=== PATIENT | female | born 1935 | race African-American/Black ===

== ENCOUNTER 2017-04-15 18:27 | Inpatient (IN) | payer OTHER ==
[~2017-04-15] VITALS: Ht 152.4 cm; Wt 56.2 kg
[2017-04-15 18:30] VITALS: BP 111/67
[2017-04-15] MEDS ORDERED: ARICEPT10 M1 PO (19:37)
[2017-04-15] MEDS ORDERED: DICLOFENAC SODI75 MG PO (19:37)
[2017-04-15] MEDS ORDERED: ONDANSETRON HCL4 M2 PO (19:38)
[2017-04-15] MEDS ORDERED: IRON325 M1 PO (19:38)
[2017-04-15 20:18] LABS: HEMATOCRIT 33.4 % (37.0-47.0); HEMOGLOBIN 10.7 gm/dL (12.0-15.0); MCH 20.6 pg (26.0-34.0); MCV 64.2 fL (80.0-100.0); PLATELET COUNT 376 thou/uL (150-400); RDW 19.3 % (10.5-14.5); WBC 8.1 thou/uL (4.0-11.0)
[2017-04-15 20:22] LABS: CALCIUM 9.7 mg/dL (8.5-10.1); CREATININE 4.9 mg/dL (0.6-1.0); POTASSIUM 3.4 mmol/L (3.5-5.1)
[2017-04-15 20:35] LABS: ABSOLUTE NEUTROPHILS 5.6 thou/uL (1.4-8.2)
[2017-04-15 20:36] LABS: HYPOCHROMASIA 2+; MICROCYTES 2+
[2017-04-15 20:37] LABS: OVALOCYTES FEW; POIKILOCYTOSIS 1+; POLYCHROMASIA OCCASIONAL
[2017-04-15 20:38] LABS: ANISOCYTOSIS 2+
[2017-04-15 20:51] VITALS: BP 122/65
[2017-04-15 21:05] VITALS: BP 123/58
[2017-04-15 21:42] VITALS: BP 135/59
[2017-04-16 04:27] VITALS: BP 105/59
[2017-04-16 07:11] LABS: CALCIUM 8.7 mg/dL (8.5-10.1); POTASSIUM 3.2 mmol/L (3.5-5.1)
[2017-04-16 07:14] LABS: CREATININE 3.5 mg/dL (0.6-1.0)
[2017-04-16 07:45] VITALS: BP 132/63
[2017-04-16 17:00] VITALS: BP 141/72
[2017-04-16 22:00] VITALS: BP 145/64
[2017-04-17 04:29] VITALS: BP 147/71
[2017-04-17 06:45] LABS: CALCIUM 8.4 mg/dL (8.5-10.1); POTASSIUM 3.5 mmol/L (3.5-5.1)
[2017-04-17 08:35] VITALS: BP 146/75
[2017-04-17 14:02] VITALS: BP 146/75
== END 2017-04-17 14:19 | disposition home or self-care (01) | DRG 391 ==
LOC: ER 18:27 → 4E 21:01 → EROBS 21:01 → 4E 21:30 → ENTRNSPT 04-17 14:11 → EDTRNSPTSTS 04-17 14:17 → 4E 04-17 14:19
PROVIDERS: Emergency Medicine; Family Medicine
DX: K52.9 Noninfective gastroenteritis and colitis, unspecified (principal); N17.0 Acute kidney failure with tubular necrosis; I10 Essential (primary) hypertension; Z88.0 Allergy status to penicillin; Z91.040 Latex allergy status
CPT/HCPCS: 10084

== ENCOUNTER 2017-07-27 16:18 | Emergency (ER) | payer OTHER ==
[~2017-07-27] VITALS: Ht 152.4 cm; Wt 62.6 kg
--- NOTE | ~2017-07-27 | EKG ---
[place] [address] [facility] [place] [address] ELECTROCARDIOGRAM REPORT Name: MAGALI ROBINS [id number] Admission: 07/27/17 Attend Phys: Discharge: 07/27/17 Date of : 31 Report #: [id number] THIS REPORT FOR: //name// [facility] ED Test Date: 2017-07-27 Test Time: 17:37:44 Pat Name: MAGALI ROBINS Department: Room: Gender: F Duct Layer: BLAS : 1935 Requested By: Blas Buenrostro Order Number: [id number] MD: Bayron Ramirez Measurements Intervals [place] Rate: 49 P: 26 FL: 169 QRS: 6 QRSD: 94 T: 14 QT: 489 QTc: 442 Interpretive Statements Sinus bradycardia Left ventricular hypertrophy Nonspecific T abnrm, anterolateral leads No previous ECG available for comparison Electronically Signed On 07-28-2017 12:06:54 CDT by Bayron Ramirez [email or web address] <ELECTRONICALLY SIGNED> By: Bayron Ramirez MD, [facility] 07/28/17 1206 1737 1737 Bayron Ramirez MD, FACC /EPI
[~2017-07-27 16:18] MED LIST: ARICEPT10 M1 PO; DICLOFENAC SODI75 MG PO; IRON325 M1 PO; ONDANSETRON HCL4 M2 PO
[2017-07-27 17:02] LABS: HEMATOCRIT 29.2 % (37.0-47.0); HEMOGLOBIN 9.4 gm/dL (12.0-15.0); MCH 20.8 pg (26.0-34.0); MCHC 32.1 g/dL (28.0-37.0); MCV 64.8 fL (80.0-100.0); PLATELET COUNT 378 thou/uL (150-400); RDW 17.4 % (10.5-14.5); WBC 5.4 thou/uL (4.0-11.0)
[2017-07-27 17:08] LABS: ANION GAP 0 mmol/L (7-16); BUN 23 mg/dL (7-18); CALCIUM 9.3 mg/dL (8.5-10.1); CHLORIDE 105 mmol/L (98-107); CO2 29 mmol/L (21-32); CREATININE 0.8 mg/dL (0.6-1.0); GLUCOSE 114 mg/dL (74-106); POTASSIUM 3.3 mmol/L (3.5-5.1); SODIUM 134 mmol/L (136-145)
[2017-07-27 17:09] LABS: URINE BILIRUBIN NEGATIVE (Negative); URINE BLOOD NEGATIVE (Negative); URINE CLARITY CLEAR; URINE COLOR YELLOW; URINE GLUCOSE-RANDOM* NEGATIVE (Negative); URINE KETONES NEGATIVE (Negative); URINE LEUKOCYTES-REFLEX NEGATIVE (Negative); URINE NITRITE-REFLEX NEGATIVE (Negative); URINE PROTEIN (DIPSTICK) NEGATIVE (Negative); URINE UROBILINOGEN 0.2 E.U./dl (0.2-1.0)
[2017-07-27 17:15] LABS: LIPASE 241 U/L (73-393); MAGNESIUM 2.1 mg/dL (1.8-2.4); SGOT 23 U/L (15-37); SGPT 22 U/L (30-65); TOTAL BILIRUBIN 0.5 mg/dL (<0.1-1.0); TOTAL PROTEIN 7.3 g/dL (6.4-8.2); TROPONIN-I < 0.04 ng/mL (<0.06)
[2017-07-27 17:30] LABS: ABSOLUTE NEUTROPHILS 2.9 thou/uL (1.4-8.2)
[2017-07-27 17:31] LABS: ANISOCYTOSIS 2+; HYPOCHROMASIA 2+; MICROCYTES 2+
[2017-07-27 17:32] LABS: BURR CELLS 1+; OVALOCYTES 1+; TEARDROPS OCCASIONAL
[2017-07-27] MEDS ORDERED: HYDROCHLOROTHIA25 M2 PO (17:39)
[2017-07-27] MEDS ORDERED: LISINOPRIL40 MG PO (17:40)
[2017-07-27] MEDS ORDERED: ZOFRAN ODT8 MG PO (18:07)
[2017-07-27] MEDS ORDERED: PEPCID20 MG PO (18:07)
== END 2017-07-27 18:33 | disposition home or self-care (01) ==
LOC: ER 16:18
PROVIDERS: Emergency Medicine
DX: R53.1 Weakness (principal); R11.2 Nausea with vomiting, unspecified; E73.9 Lactose intolerance, unspecified; I10 Essential (primary) hypertension; R19.7 Diarrhea, unspecified; Z88.0 Allergy status to penicillin

== ENCOUNTER → 2017-08-26 | Outpatient (CLI) | payer OTHER ==
[~2017-08-26] MED LIST changes: +HYDROCHLOROTHIA25 M2 PO; +LISINOPRIL40 MG PO; +PEPCID20 MG PO; +ZOFRAN ODT8 MG PO
== END ==
LOC: MRI 07:00
DX: M48.07 Spinal stenosis, lumbosacral region (principal); M41.86 Other forms of scoliosis, lumbar region; M46.86 Other specified inflammatory spondylopathies, lumbar region

== ENCOUNTER 2017-11-05 14:24 | Emergency (ER) | payer OTHER ==
[~2017-11-05] VITALS: Ht 152.4 cm; Wt 62.6 kg
== END 2017-11-05 16:58 | disposition home or self-care (01) ==
LOC: ER 14:24
DX: S50.311A Abrasion of right elbow, initial encounter (principal); S80.211A Abrasion, right knee, initial encounter; S09.90XA Unspecified injury of head, initial encounter; M25.511 Pain in right shoulder; I10 Essential (primary) hypertension; M17.11 Unilateral primary osteoarthritis, right knee; Z88.0 Allergy status to penicillin; Z91.040 Latex allergy status; Z90.710 Acquired absence of both cervix and uterus; Z90.722 Acquired absence of ovaries, bilateral; W01.198A Fall on same level from slipping, tripping and stumbling with subsequent striking against other object, initial encounter; Y92.89 Other specified places as the place of occurrence of the external cause; Y93.89 Activity, other specified; Y99.8 Other external cause status

== ENCOUNTER 2018-08-24 13:50 | Emergency (ER) | payer OTHER ==
[~2018-08-24] VITALS: Ht 152.4 cm; Wt 59.0 kg
[2018-08-24 14:19] LABS: URINE BILIRUBIN NEGATIVE (Negative); URINE BLOOD NEGATIVE (Negative); URINE CLARITY CLEAR; URINE COLOR YELLOW; URINE GLUCOSE-RANDOM* NEGATIVE (Negative); URINE KETONES NEGATIVE (Negative); URINE LEUKOCYTES-REFLEX NEGATIVE (Negative); URINE NITRITE-REFLEX NEGATIVE (Negative); URINE PROTEIN (DIPSTICK) 1+ (Negative); URINE UROBILINOGEN 0.2 E.U./dl (0.2-1.0)
[2018-08-24 14:25] LABS: BACTERIA-REFLEX 1-9 Few /HPF (None Seen); CASTS None Seen /LPF (None Seen); CRYSTALS None Seen /LPF (None Seen); SQUAMOUS 0-3 Few /LPF (0-3); URINE RBC None Seen /HPF (0-2); URINE WBC-REFLEX 0-5 Rare /HPF (0-5)
[2018-08-24 14:44] LABS: HEMATOCRIT 30.9 % (37.0-47.0); HEMOGLOBIN 9.7 gm/dL (12.0-15.0); MCH 19.6 pg (26.0-34.0); MCHC 31.3 g/dL (28.0-37.0); MCV 62.4 fL (80.0-100.0); PLATELET COUNT 363 thou/uL (150-400); RBC 4.95 mil/uL (4.20-5.00); RDW 20.2 % (10.5-14.5); WBC 5.6 thou/uL (4.0-11.0)
[2018-08-24 14:52] LABS: ANION GAP 12 mmol/L (7-16); BUN 11 mg/dL (7-18); CALCIUM 9.4 mg/dL (8.5-10.1); CHLORIDE 104 mmol/L (98-107); CO2 25 mmol/L (21-32); CREATININE 0.7 mg/dL (0.6-1.0); GLUCOSE 102 mg/dL (74-106); POTASSIUM 3.4 mmol/L (3.5-5.1); SODIUM 141 mmol/L (136-145)
[2018-08-24 15:02] LABS: ALBUMIN 4.3 g/dL (3.4-5.0); LIPASE 156 U/L (73-393); SGOT 17 U/L (15-37); SGPT 25 U/L (30-65); TOTAL BILIRUBIN 0.5 mg/dL (<0.1-1.0); TOTAL PROTEIN 7.6 g/dL (6.4-8.2); TROPONIN-I <0.06 ng/mL (<0.06)
[2018-08-24 15:15] LABS: ABSOLUTE NEUTROPHILS 4.1 thou/uL (1.4-8.2); ANISOCYTOSIS 1+; HYPOCHROMASIA 1+; MICROCYTES 1+
[2018-08-24] MEDS ORDERED: AMLODIPINE BESY10 MG PO (15:33)
[2018-08-24] MEDS ORDERED: NORVASC2.5 MG PO (15:34)
[2018-08-24] MEDS ORDERED: LISINOPRIL20 MG PO (15:34)
[2018-08-24 17:25] VITALS: BP 170/66
--- NOTE | 2018-08-24 22:43 | EKG ---
[address] [address] ELECTROCARDIOGRAM REPORT Name: MAGALI ROBINS 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 : 1935 Requested By: Xavi Rivera Order Number: [id number] MD: El Rose Measurements Intervals [place] Rate: 46 P: 28 CO: 154 QRS: 0 QRSD: 101 T: -4 QT: 495 QTc: 433 Interpretive Statements Sinus bradycardia Left ventricular hypertrophy Compared to ECG 07/27/2017 17:37:44 No significant changes Electronically Signed On 08-24-2018 22:43:00 CDT by El Rose [email or web address] ��������������������������������������������� <ELECTRONICALLY SIGNED> ���������������������������������������� By: El Rose MD ��������������������������������������������� 08/24/18 2243 1446 144 El Rose MD /GONZALES
== END 2018-08-24 17:26 | disposition home or self-care (01) ==
LOC: ER 13:50
PROVIDERS: Emergency Medicine
DX: R11.2 Nausea with vomiting, unspecified (principal); I10 Essential (primary) hypertension; Z88.0 Allergy status to penicillin; Z91.040 Latex allergy status

== ENCOUNTER → 2019-02-09 | Outpatient (CLI) | payer OTHER ==
[~2019-02-09] MED LIST changes: +AMLODIPINE BESY10 MG PO; +LISINOPRIL20 MG PO; +NORVASC2.5 MG PO
[2019-02-09 13:55] VITALS: BP 177/68
--- NOTE | 2019-02-09 15:47 | NUR ---
IN FOR 1ST OF 2 INJECTAFER INFUSIONS FOR IRON DEFICIENCY ANEMIA. ADMISSION HISTORY AND ASSESSMENT COMPLETED. IV STARTED IN RW, INFUSED INJECTAFER OVER 30 MINUTES. TOLERATED INFUSION WELL. PATIENT'S BP ELEVATED 177/68. PATIENT RECENTLY HAD STOPPED LISINOPRIL DUE TO COUGH. PATIENT'S DTR CALLED DR. LUONG AND RECEIVED NEW PRESCRIPTION FOR HTN, AND WILL MANAGER [employer]AT[employer] SERVICES ON THE WAY HOME. POST VITAL SIGNS STABLE. OBSERVED FOR 30 MINUTES AND THEN DISMISSED IN STABLE CONDITION. TO RETURN NEXT SATURDAY FOR 2ND INFUSION.
== END ==
LOC: RAD 09:21 → OPONC 09:21
DX: D50.9 Iron deficiency anemia, unspecified (principal); K90.9 Intestinal malabsorption, unspecified
CPT/HCPCS: 95000

== ENCOUNTER → 2019-02-16 | Outpatient (CLI) | payer OTHER ==
[2019-02-16 14:05] VITALS: BP 162/64
[2019-02-16 15:45] VITALS: BP 173/72
--- NOTE | 2019-02-16 16:06 | NUR ---
IN FOR 2ND INJECTAFER INFUSION FOR IRON DEFICIENCY ANEMIA. PATIENT STATED SHE IS FEELING BETTER SINCE HER 1ST INFUSION LAST SATURDAY. DTR MACKENZIE WITH PATIENT. TOLERATED INFUSION WITHOUT INCIDENT. POST VITAL SIGNS STABLE. OBSERVED FOR 30 MINUTES AND THEN DISMISSED IN STABLE CONDITION.
== END ==
LOC: OPONC 01:37
DX: D50.9 Iron deficiency anemia, unspecified (principal); K90.9 Intestinal malabsorption, unspecified
CPT/HCPCS: 95000

== ENCOUNTER 2021-04-26 11:53 | Inpatient (IN) | payer OTHER ==
[~2021-04-26] VITALS: Ht 149.9 cm; Wt 49.9 kg
--- NOTE | ~2021-04-26 | EMS ---
[address] [address] EMS Patient Care Report Name: MAGALI ROBINS Room #: REG VU Banks#: [id number] Admission: 04/26/21 Attend Phys: Discharge: Date of : 33 Report #: [id number] THIS REPORT FOR: //name// Report Transmitted: 04/26/2021 13:21 EMS Care Summary [place], [place]/[facility] Incident [phone] @ 04/26/2021 11:20 Incident Location [address] [place] [address] 217 Patient MAGALI ROBINS Female, 85 Years 1935 Patient Address Patient History Hypertension (HTN), Patient Allergies Other drug allergy, Patient Medications Unknown, Chief Complaint "Just not feeling well" Disposition Transported No Lights/[place] Dispatch Reason Sick Person Transported To [facility] Narrative Arrived on scene to find our patient walking around her apartment talking on the phone. EMS had been called by the patient's son when he was unable to reach the patient via phone. Patient stated she was "feeling unwell" but could not describe specifically how she was feeling unwell. Patient reported that she had one short episode of vomiting earlier in the morning but denied any chest pain, soa, nausea, or diarrhea. I spoke with the patient's son via phone and he [address] [address] EMS Patient Care Report Name: MAGALI ROBINS Room #: REG VU Banks#: [id number] Admission: 04/26/21 Attend Phys: Discharge: Date of : 33 Report #: [id number] stated the patient had not been taking her medications for approximately 2 months. Patient stated she "doesn't take my medications like they want me to." The patient stated that she felt mildly confused. Patient was AO3 upon our arrival and did not appear in any obvious distress. Patient assisted to cot. Vital signs obtained and patient transported and transferred to receiving facility without change in patient condition. Initial Vitals @11:31P: 69,R: 16,BP: 205/83,Pain: 0/10,GCS: 14,Glucose: 125,SpO2: 98,Revised Trauma: 12, @11:47P: 55,R: 16,BP: 190/80,Pain: 0/10,GCS: 14,SpO2: 98,Revised Trauma: 12, Assessments @11:25MENTAL:Time Oriented,Person Oriented,Place Oriented,Event Oriented,Confused,SKIN:HEENT:Head/Face: No Abnormalities,Neck/Airway: No Abnormalities,LUNG SOUNDS:General: Vomiting,ABDOMEN:General: Vomiting,PELVIS//GI:No Abnormalities,EXTREMITIES:Left Arm: No Abnormalities,Right Arm: No Abnormalities,Left Leg: No Abnormalities,Right Leg: No Abnormalities,PULSE:NEURO:No Abnormalities, Impression Generalized Weakness Procedures @11:25 ALS Assessment Response: UnchangedSucceeded Timeline 11:15,Call Received 11:15,Dispatch Notified 11:20,Dispatched 11:20,En Route 11:23,On Scene 11:25,At Patient 11:25,ALS Assessment,Response: UnchangedSucceeded, 11:31,BP: 205/83 M,PULSE: 69,RR: 16 R,SPO2: 98 Ox,ETCO2: ,B,PAIN: 0,GCS: 14, 11:40,Depart Scene 11:47,BP: 190/80 M,PULSE: 55,RR: 16 R,SPO2: 98 Ox,ETCO2: ,BG: ,PAIN: 0,GCS: 14, 11:50,At Destination 12:04,Call Closed Disclaimer v1.1 Copyright 2021 [employer] This EMS Care Summary contains data elements from the applicable legal record (which may be displayed differently). It is designed to provide pertinent [address] [address] EMS Patient Care Report Name: MAGALI ROBINS [facility] #: [facility] [id number] Admission: 04/26/21 Attend Phys: Discharge: Date of : 33 Report #: [id number] information for the following purposes: continuity of care, clinical quality, and state data reporting. The complete legal record is available to ED staff and administrators of the receiving hospital in ES's Patient Tracker. All data is provided "as is."
[2021-04-26 11:55] VITALS: BP 211/73
[2021-04-26 12:18] LABS: ABSOLUTE NEUTROPHILS 2.6 thou/uL (1.4-8.2); BASOPHILS 1.3 % (0.0-2.0); EOSINOPHILS 0.7 % (0.0-3.0); HEMATOCRIT 39.2 % (37.0-47.0); HEMOGLOBIN 12.5 gm/dL (12.0-15.0); LYMPHOCYTES 24.9 % (24.0-44.0); MCH 25.4 pg (26.0-34.0); MCHC 31.9 g/dL (28.0-37.0); MCV 79.6 fL (80.0-100.0); MONOCYTES 4.7 % (1.0-8.0); PLATELET COUNT 263 thou/uL (150-400); POLYS 68.4 % (36.0-66.0); RBC 4.93 mil/uL (4.20-5.00); RDW 14.9 % (10.5-14.5); WBC 3.8 thou/uL (4.0-11.0)
[2021-04-26 12:29] LABS: CREATININE 0.6 mg/dL (0.6-1.0)
[2021-04-26 12:30] LABS: URINE BILIRUBIN NEGATIVE (Negative); URINE BLOOD NEGATIVE (Negative); URINE CLARITY CLEAR; URINE COLOR YELLOW; URINE GLUCOSE-RANDOM* NEGATIVE (Negative); URINE KETONES NEGATIVE (Negative); URINE LEUKOCYTES-REFLEX NEGATIVE (Negative); URINE NITRITE-REFLEX NEGATIVE (Negative); URINE PROTEIN (DIPSTICK) NEGATIVE (Negative); URINE SPECIFIC GRAVITY >= 1.030 (1.005-1.035); URINE UROBILINOGEN 0.2 E.U./dl (0.2-1.0)
[2021-04-26 12:31] LABS: POTASSIUM 4.4 mmol/L (3.5-5.1)
[2021-04-26 12:34] LABS: ALBUMIN 3.9 g/dL (3.4-5.0); TOTAL BILIRUBIN 0.7 mg/dL (0.2-1.0); TOTAL PROTEIN 7.5 g/dL (6.4-8.2)
--- NOTE | 2021-04-26 17:59 | NUR ---
POOJA HERNANDEZ-SON [phone]
[2021-04-26] MEDS ORDERED: DITROPAN XL5 M1 PO ×2 (18:43)
[2021-04-26] MEDS ORDERED: LISINOPRIL20 MG PO ×2 (18:43)
[2021-04-26] MEDS ORDERED: VOLTAREN50 MG PO ×2 (18:44)
--- NOTE | 2021-04-27 05:34 | NUR ---
ARIVED VIA EMS TO ER. PT HAS EARLY DEMENTIA, BRADYCARDIA, AND SUNDOWNERS NOTED PT IS AGITATED AND WANTING TO LEAVE. MOVED TO CLOSER TO DESK AREA 217 LUNGS CLEAR . ON ROOM AIR. ABDOMEN IS SOFT AND NONTENDER. BOWEL SOUNDS ACTIVE. SAILINE LOCK IN RIGHT ARM. FALL SOCKS ON FALL BRACELET ON. DNR PLACED ON PT DOESNT WANT ANYTHING DONE TO HER SHE REPORTS AND CHART PREVIOUS STATES NO CODE. CALL LIGHT WITHIN REACH PLAN OF CARE DISCUSSED WITH PT FOR ADMISSION AT THIS TIME NOT READY TO LEARN.
--- NOTE | 2021-04-27 08:38 | EKG ---
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 04/27/21 0837 1205 1205 Abdon Matthews MD, FACC /EPI
--- NOTE | 2021-04-27 08:39 | EKG ---
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 garcia : 1935 Requested By: Jennifer Espinoza Order Number: [id number] MD: Abdon Matthews Measurements Intervals [place] Rate: 40 P: 50 GA: 150 QRS: 19 QRSD: 97 T: 51 QT: 509 QTc: 416 Interpretive Statements Sinus bradycardia Compared to ECG 04/26/2021 12:05:10 T-wave abnormality no longer present Electronically Signed On 04-27-2021 8:39:14 [employer]CHETTE SEWER by Abdon Matthews [email or web address] <ELECTRONICALLY SIGNED> By: Abdon Matthews MD, [facility] 04/27/21 0839 1536 1536 Abdon Matthews MD, FACC /EPI
[2021-04-27 08:44] VITALS: BP 155/87
[2021-04-27 13:47] VITALS: BP 163/88
--- NOTE | 2021-04-27 16:38 | NUR ---
PATIENT TRANSFERED TO [facility] ROOM 520. REPORT GIVEN TO RIC JACOBS. NO QUESTIONS OR CONCERNS AT TIME OF REPORT. SON POOJA CALLED AND MADE AWARE. IV AND TELE REMOVED.
== END 2021-04-27 16:42 | DRG 308 ==
LOC: ER 11:53 → EROBS 17:19 → 2N 17:19
PROVIDERS: Nurse Practitioner Family; ADMIT Hospitalist; ATTEND Hospitalist
DX: R00.1 Bradycardia, unspecified (principal); G93.41 Metabolic encephalopathy; F03.91 Unspecified dementia, unspecified severity, with behavioral disturbance; R11.2 Nausea with vomiting, unspecified; R41.0 Disorientation, unspecified; N32.81 Overactive bladder; K59.00 Constipation, unspecified; D50.9 Iron deficiency anemia, unspecified; R53.81 Other malaise; I10 Essential (primary) hypertension; Z20.822 Contact with and (suspected) exposure to COVID-19; Z90.710 Acquired absence of both cervix and uterus; Z90.722 Acquired absence of ovaries, bilateral; Z79.899 Other long term (current) drug therapy; Z88.0 Allergy status to penicillin; Z91.040 Latex allergy status

== ENCOUNTER 2021-04-27 12:01 | Inpatient (IN) | payer OTHER ==
[~2021-04-27] VITALS: Ht 144.8 cm; Wt 51.5 kg
--- NOTE | ~2021-04-27 | D ---
[facility] [place] [address] DISCHARGE SUMMARY Name: MAGALI ROBINS Room #: 519A-A DIS IN M.R.#: [id number] Admission: 04/27/21 Attend Phys: Ortiz Garcia DO Discharge: 05/09/21 Date of : 33 Report #: [id number] THIS REPORT FOR: cc: Jd Claire MD, Neal A. MD Kerstein,Ortiz Mcqueen DO ~ DATE OF SERVICE: 05/09/2021 INPATIENT PSYCHIATRIC DISCHARGE SUMMARY ATTENDING PSYCHIATRIST: Ortiz Garcia DO POULTRY BONER: Mariano Clark MD DISCHARGE DIAGNOSES: Major neurocognitive disorder with behavioral disturbance, much improved. MEDICAL COMORBIDITIES: Include hypertension, GI prophylaxis, sinus bradycardia. The patient is discharging to [facility] for long-term care, psychiatric and medical care per receiving facility. DISCHARGE DIET: Regular Ensure Enlive with breakfast. The patient utilizes a walker. DISCHARGE MEDICATIONS: As follows: Amlodipine 10 mg oral daily for hypertension, lisinopril 20 mg oral for hypertension, hold if BP is under 100 systolic mmHg for both, olanzapine 2.5 mg oral twice daily for impulse control, docusate 100 mg oral daily for bowel motility. LABORATORY DATA: This admission, hematology: White count 3.9, H and H 12.5 and 39.2, platelet count 263. On 04/26, CMP was grossly normal except A1c 5.7. ALT slightly low at 18. Lipids were within normal limits. TSH 0.586. Folate normal at 20.1. B12, somewhat low at 295. Lipase was normal. Urinalysis, normal serology, not detected by PCR on 04/27, 04/30, 05/02, 05/05, and 05/07. REASON FOR ADMISSION: Back on 04/27, an 85-year old black female admitted via ED, brought in by EMS for nausea and vomiting. The patient was more confused than usual. The patient was found to be demented and family was unable to take care of her. Therefore, they switched gears to psychiatric admission. HOSPITAL COURSE: The patient was admitted to Geriatric Psychiatry Unit. She had a pretty quiescent course, was well behaved, participated in groups. Her initial weekend here, she has some impulsiveness. Olanzapine 2.5 mg daily was started. She tolerated it well. On the day of discharge, no SI, no HI. PHYSICAL EXAMINATION: VITAL SIGNS: Temperature 36.4, pulse 64, respirations 16, BP 184/65, O2 sat [facility] [address] [place] [address] DISCHARGE SUMMARY Name: MAGALI ROBINS Room #: 519A-A [facility] IN .R.#: [id number] Admission: 04/27/21 Attend Phys: Ortiz Garcia, Discharge: 05/09/21 Date of : 31 Report #: [id number] 99%. She did roa around 180 systolic for her blood pressure and given her advanced age, this was not significantly managed. MENTAL STATUS EXAMINATION: This is a well-developed, age-appearing black female. Attention fair. Concentration limited. Speech normal in rate. Thought process: Linear and goal directed. Thought content: Focused on current events. Denied SI, HI. No auditory or visual type hallucinations. No hopelessness or helplessness. Memory known to be impaired, not formally tested. Insight and judgment fair to limited. Fund of knowledge, below average. Prognosis for this patient is guarded given her age of 85, having a neurodegenerative disorder. Also, she did have an EKG done on this admission, which I will review briefly. Actually, showed QTc 421, QT 471, ND interval 147 milliseconds. She actually was admitted medically very briefly and there should be a discharge summary from Ortiz Garces, her hospitalist. . By: 1244 1355 Ortiz Garcia, DO /nt
[~2021-04-27 12:01] MED LIST changes: +DITROPAN XL5 M1 PO; +VOLTAREN50 MG PO
--- NOTE | 2021-04-27 17:48 | NUR ---
Jade arrived to [facility] from CCU room 217 at 1627. She was brought to her room and oriented to her surroundings. Skin check was completed and no skin issues noted besides some dry skin to bilateral feet. Pt was compliant with the skin assessment but when asked orientation questions pt appeared confused and responded by stating "I already answered that earlier, I'm not going to do that again". Pt is currently sitting up eating dinner in a gilson-chair in the hallway due to covid protocols on the unit and pt being restless in bed. She appears to have a good appetite at this time. Pt's son/DPDIDI Jefferson was called and consent for tx received as well as this RN provided him with information regarding the unit. Ronny and his were driving from [place] to [place] and he stated he would have more questions tomorrow and would come grain picker pt's belongings tomorrow around 2pm; he is aware that we currently do not have visiting hours. Medications were reordered per orders received from Dr. Garcia; medication orders are the same as medications pt was D/C'd with from CCU. Dr. Garces was paged at [phone] to notify of pt's arrival to the unit as Dr. Garcia stated to keep Dr. Garces as the hospitalist as he was attending to pt on CCU. Have not received a call back at this time. CCU nurse was called regarding pt's code status as it was not clear. Per Rere RN she stated that over night last night pt had made comments of wanting to and per over night hospitalist she was made a no code. This morning Dr. Garces spoke to Ronny pt's DPOA/son and stated she is a full code. Orders placed for pt to be a full code upon admission. Will continue to monitor. CCU nurse was called to receive information regarding pt's code status.
[2021-04-27 18:30] VITALS: BP 174/85
[2021-04-27 19:38] VITALS: BP 161/78
--- NOTE | 2021-04-27 23:39 | NUR ---
04-27-21 CARE TRANSFERRED 1899 OBSERVED PT SITTING IN HALLWAY WITH TABLE. LATER PT AAOX2, VSS, RR EVEN AND NONLABORED ON RA, PT DENIES PAIN AND SI/HI. PT REPORTS SHE NEEDS TO GO HOME. PT APPEARS TO UNDERSTANDING THAT SHE WILL BE STAYING IN THE HOSPITAL. LATER PT BECAME AGITATED AND WANTING TO GET UP, PT BROUGHT TO DAY ROOM. HCP Kyra CEBALLOS, DO CONTACED AND ORDERS RECEIVED AND ADMIN. PT WILL CONTINUE TO BE MONITOR PER [facility] PROTOCOL.
[2021-04-28 06:57] LABS: CHOLESTEROL 180 mg/dL (<200); HDL CHOLESTEROL 96 mg/dL (>40); LDL CHOLESTEROL 73 mg/dL (<100); TC:HDL 1.9 Ratio (Not establshd); TRIGLYCERIDE 58 mg/dL (<150); VLDL 12 mg/dL (<40)
--- NOTE | 2021-04-28 09:21 | NUR ---
PATIENT D/C PRIOR TO OT EVAL BEING INITIATED
[2021-04-28 10:03] VITALS: BP 155/84
--- NOTE | 2021-04-28 10:54 | NUR ---
Alert and orientated to person and place. Denies SI/HI. Breath sounds clear. Reg HR auscultated. Color pink with brisk capillary refill and palpable peripheral pulses. Incontinent of large amt yellow urine and then continent of yellow urine in toilet. Brief placed on pt. Active bowel sounds over soft, rounded abdomen. Unsteady gait with walker.
--- NOTE | 2021-04-28 11:50 | 2DMMODE ---
[facility] [place] [address] 2 D/M-MODE ECHOCARDIOGRAM Name: MAGALI ROBINS Room #: 520A-A ADM IN M.R.#: [id number] Admission: 04/27/21 Attend Phys: Ortiz Garcia DO Discharge: Date of : 33 Report #: [id number] THIS REPORT FOR: cc: Jd Claire MD, Neal A. MD Lundgren, Craig H. MD [facility] ~ APPROVED REPORT Study performed: 04/28/2021 11:12:38 EXAM: Comprehensive 2D, Doppler, and color-flow Echocardiogram Patient Location: Out-Patient Status: routine BSA: 1.39 HR: 62 bpm BP: 155/84 mmHg Rhythm: NSR Other Information Study Quality: Good Indications Bradycardia. 2D Dimensions RVDd: 30.00 mm IVSd: 12.00 (7-11mm) LVOT Diam: 20.00 (18-24mm) LVDd: 40.00 mm PWd: 12.00 (7-11mm) LVDs: 27.00 (25-40mm) Left Atrium: 32.00 (27-40mm) Aortic Root: 29.00 mm Volumes Left Atrial Volume (Systole) Single Plane 4CH: 30.59 mL Single Plane 2CH: 32.64 mL LA ESV Index: 27.00 mL/m2 Aortic Valve AoV Peak Nikolai.: 1.50 m/s AO Peak Gr.: 8.95 mmHg LVOT Max P.00 mmHg LVOT Max V: 1.12 m/s ELLE Vmax: 2.32 cm2 [facility] [address] [address] 2 D/M-MODE ECHOCARDIOGRAM Name: MAGALI ROBINS Room #: 520A-A [facility] IN [facility].#: [id number] Admission: 04/27/21 Attend Phys: Ortiz Garcia Discharge: Date of : 33 Report #: [id number] Mitral Valve E/A Ratio: 0.7 MV Decel. Time: 367.51 ms MV E Max Nikolai.: 0.70 m/s MV A Nikolai.: 1.07 m/s MV PHT: 106.58 ms IVRT: 65.74 ms Pulmonary Valve PV Peak Nikolai.: 0.97 m/s PV Peak Gr.: 3.78 mmHg Pulmonary Vein P Vein S: 0.40 m/s Tricuspid Valve TR Peak Nikolai.: 2.25 m/s RAP Estimate: 5.00 mmHg TR Peak Gr.: 20.16 mmHg PA Pressure: 25.00 mmHg Left Ventricle The left ventricle is normal size. There is normal LV segmental wall motion. Mild concentric left ventricular hypertrophy. Left ventricular systolic function is hyperdynamic. LVEF is 65-70%. Mild diastolic dysfunction Right Ventricle The right ventricle is normal size. The right ventricular systolic function is normal. Atria The left atrium size is normal. The right atrium size is normal. Aortic Valve Aortic valve is calcified. Trace aortic regurgitation. No aortic valvular stenosis. Mitral Valve Mild mitral annular calcification. No mitral valve regurgitation noted. No evidence of mitral valve stenosis. Tricuspid Valve The tricuspid valve is normal in structure. Mild tricuspid regurgitation. Estimated pulmonary artery pressure of 25mmHg. [facility] [address] [place] [address] 2 D/M-MODE ECHOCARDIOGRAM Name: MAGALI ROBINS Room #: 520A-A [facility] IN ..#: [id number] Admission: 04/27/21 Attend Phys: Ortiz Garcia Discharge: Date of : 31 Report #: [id number] Pulmonic Valve Pulmonic valve is not well visualized. Trace pulmonic regurgitation. Great Vessels The aortic root is normal in size. Ascending aorta is not well visualized. IVC is normal in size and collapses >50% with inspiration. Pericardium There is no pericardial effusion. <Conclusion> Left ventricular systolic function is hyperdynamic. There is normal LV segmental wall motion. Mild concentric left ventricular hypertrophy. LVEF is 65-70%. Mild diastolic dysfunction Aortic valve is calcified. Trace aortic regurgitation, no stenosis. Mild mitral annular calcification. No mitral valve regurgitation Mild tricuspid regurgitation. Estimated pulmonary artery pressure of 25mmHg. There is no pericardial effusion. <ELECTRONICALLY SIGNED> By: Bayron Ramirez MD, FACC 04/28/21 1150 1150 1150 Bayron Ramirez MD, [facility] /INF
[2021-04-28 14:42] LABS: FOLIC ACID 20.1 ng/mL (8.6-58.9)
[2021-04-28 19:02] VITALS: BP 145/79
--- NOTE | 2021-04-29 05:18 | NUR ---
Assumed care of pt at 1900. Pt calm et cooperative this shift. Took medications whole without difficulty. Ambulates with assistance of gilson-chair this shift. VSWNL. Health assessment with no abnormalities noted this shift. Spent the early part of shift watching TV with peers in dayroom. Pt denies SI/HI at present time. Currently resting in bed with eyes closed. Will continue to monitor per unit protocol.
[2021-04-29 06:06] LABS: GLYCOHEMOGLOBIN (HGB A1C) 5.7 % (4.8-5.6)
--- NOTE | 2021-04-29 10:00 | NUR ---
Alert and orientated to name and time. Denies SI/HI. Calm, cooperative and compliant. Took meds whole with liquid. Breath sounds clear. Reg HR auscultated. Color pink with brisk capillary refill and palpable peripheral pulses. Brief dry this AM. Active bowel sounds over soft, rounded abdomen. Able to bear wt but needs assistance ambulating, gait very unsteady. Currently sitting in chair without s/o distress. In day room.
[2021-04-29 10:58] VITALS: BP 123/53
[2021-04-29 19:01] VITALS: BP 119/50
--- NOTE | 2021-04-29 21:56 | H ---
[facility] [place] [place] [address] HISTORY AND PHYSICAL Name: MAGALI ROBINS Room #: 520A-A ADM IN M.R.#: [id number] Admission: 04/27/21 Attend Phys: Ortiz Garcia DO Discharge: Date of : 31 Report #: [id number] THIS REPORT FOR: cc: dJ Claire MD, Neal A. MD Kerstein, Andrew H. DO ~ DATE OF SERVICE: 04/27/2021 INPATIENT PSYCHIATRIC EVALUATION ATTENDING PSYCHIATRIST: Ortiz Garcia DO MEDICAL CONSULTANTS: Shani Chen APRN and consulting hospitalist, Guanakito Taveras MD. REASON FOR ADMISSION: Paranoia, agitation, probable dementia, on medical floor. SOURCES OF INFORMATION: Interview with the patient, chart review including records from very her recent medical hospitalization. She had had her medical hospitalizations supposedly for bradycardia and weakness. CHIEF COMPLAINT: Unspecified. HISTORY OF PRESENT ILLNESS: An 85-year-old black female brought to the ED by EMS, complaint was nausea and vomiting. The patient was brought in from independent living. The patient reports she had one episode of nausea and vomiting. The patient was more confused than usual, the patient agrees. Denies urinary complaints, but states it was of "different color." She is alert and oriented x 4. PAST MEDICAL HISTORY: Includes hypertension, ectopic , knee surgery, right side; arthritis, total abdominal hysterectomy with bilateral salpingo-oophorectomy. She has anemia, she has injection after infusion, 02/09/2019, 02/16/2019. HOME MEDICATIONS: Donepezil 10 mg oral daily, olanzapine 2.5 mg daily, ferrous sulfate 325 mg p.o. daily. ALLERGIES: LATEX AND PENICILLINS. SOCIAL HISTORY: Denying history of tobacco, alcohol or recreational drug use. Weight 54.43 kilos. She did have a heart rate of 40-48 in the ER, no STEMI was observed. She actually was seen by Cardiology on the medical floor, no psychiatric [address] [address] HISTORY AND PHYSICAL Name: MAGALI ROBINS Room #: 520A-A ADM IN ..#: [id number] Admission: 04/27/21 Attend Phys: Ortiz Garcia DO Discharge: Date of : 33 Report #: [id number] consultation was completed; however, she was very agitated the night before psychiatric admission and we decided given the circumstances to bring her up to the [facility]. LABORATORY DATA: Hematology: White count 3.8, H and H 12.5 and 39.3, platelet count 263. She has occasional teardrop cells, polychromasia. Segmented neutrophil percentage was high. Chemistries: Sodium 137, potassium 4.4, chloride 103, bicarbonate 23, anion gap 11, BUN 8, creatinine 0.6, estimated GFR 115, glucose 137, calcium 9.0. Total bilirubin 0.7, AST 26, ALT 18. Troponin high sensitivity at 38. Total protein 7.5, albumin 3.9. Triglycerides 58, cholesterol 180, LDL 73, HDL 96. B12 level low at 295. Folate 20.1. TSH 0.586. Urinalysis was clean except for a few bacteria, no culture triggered. SARS-CoV-2 PCR was negative. IMAGING DONE: None this admission. The patient's son, Ronny, is driving from [place] in [place] and should arrive some time today, 04/28/2021. Also, it was noted by the patient's nurse in the CCU, she made comments of wanting to . Per overnight hospitalist, she was made a no code, but looks like the DPOA wanted her to be a full code. In any event, today, the patient was pleasant. Denied suicidal or homicidal ideation, auditory or visual type hallucinations. She was oriented to person, place, situation, appeared frail and weak. Regarding her medications today, I reviewed them with pharmacist. She is on docusate 100 mg oral daily, 20 mg oral daily, olanzapine as ordered at 2.5 mg oral twice a day with starter dose at 11:30, I will change it to 9 to 9 as per normal with other patients. She is on lisinopril 20 mg daily with parameters, donepezil, which she is at home at 10 mg oral daily. I should note since she was admitted with bradycardia, this medication would be cautioned. I think since it is on board at this time, we will leave it, but I will discuss risks versus benefits. Voltaren 50 mg p.o. daily, amlodipine 2.5 mg oral daily. Otherwise, house PRNs. PHYSICAL EXAMINATION: VITAL SIGNS: Temperature 35.9, pulse 71, respirations 17, BP 135/84, O2 sat 94%. GENERAL: Frail, thin appearing, seen in Leia chair. MENTAL STATUS EXAMINATION: Well-developed, ill-appearing black female, apparently stated age. Attention limited. Concentration limited. Speech soft, normal rate. Thought process, linear, limited. Thought content, focused on present. Denied SI, HI, auditory or visual type hallucinations. mood affect- calm congruent, euthymic, memory- not formally tested insight/judgement fair to [facility] [address] [place] [address] HISTORY AND PHYSICAL Name: MAGALI ROBINS Room #: 520A-A ADM IN .R.#: [id number] Admission: 04/27/21 Attend Phys: Ortiz Garcia, Discharge: Date of : 31 Report #: [id number] limited fund of knowledge- no greater than average Do not have a good handle on family psychiatric history or if there has been abuse, physical, sexual, emotional nature. 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 Chest x-ray was negative. sinus bradycardia, heart rate in the 60s, occasional episodes dropping to as low as 35 consistent with sinus bradycardia, that may be related to nausea and vomiting, vasovagal reaction. I think we will go ahead and stop the Aricept on this patient, as she has made it to 85 years and I think the risks outweigh the benefits at this point. FORMULATION: An 85-year-old female, brought in from independent living facility for weakness, bradycardia, initial complaints of nausea, vomiting. DIAGNOSES: At this time, major neurocognitive disorder, working diagnosis. Additional comorbidities include hypertension, osteoarthritis, generalized weakness, deconditioning. PLAN: Admitted voluntarily to [facility] to evaluate, stabilize, obtain collateral. I will go ahead and stop the donepezil today as other causes of bradycardia were excluded downstairs. We will continue the other hospitalized medications. The olanzapine will have some anti-delirium effect, we can only stop that too at a later date. Time spent on this case about 45 minutes, greater than 50% of the time was in review of records and coordination of care. I will look to talk with her son early next week if I do not reach him today. STRENGTHS: She is insured, supportive family. WEAKNESSES: Does not have placement yet. <ELECTRONICALLY SIGNED> By: Ortiz Garcia DO 04/29/21 [id number] Ortiz Garcia DO /nt
--- NOTE | 2021-04-30 06:38 | NUR ---
Assumed care of pt at 1900. Pt calm et cooperative this shift. Took medications whole without difficulty. Ambulates with assistance of gilson-chair this shift. VSWNL. Health assessment with no abnormalities noted at present time. Denies SI/HI at present time. Currently resting in gilson-chair in dayroom with eyes open. Will continue to monitor per unit protocol.
[2021-04-30 09:11] VITALS: BP 155/55
--- NOTE | 2021-04-30 10:21 | NUR ---
COMPLIENT WITH TAKING AM MEDICATIONS AND DENIES COMPLAINTS DURING AM ASSESSMENT. ORIENTED TO PERSON AND KNWS SHE IS IN HOSPITAL BUT UNABLE TO STATE NAME-FED SELF 100 PERCENT OF BREAKFAST AND ATTENDED AM GROUP ACTIVITY-MINIMAL PARTICIPATIONAMBULATES TO/FRPM BATHROOM WITH MINIMAL STAND BY ASSIST.
--- NOTE | 2021-04-30 14:39 | NUR ---
ambulates in hallway with use of roller WALKER SHORT DISTANCE WITH ASSIST OF THIS RN. STATES SHE IS SCARED OF FALLING AND HAS BEEN COMPLIENT WITH REQUESTS FROM STAFF RE FALLS PRECAUTIONS. TALKATIVE AND PLEASANT THIS PM WHILE SITTING IN DAYROOM SPEAKING AT LENGTH ABOUT HER HUSBANDS AND CHILDREN AND MOVING WITH HUSBANDS CAREER .
[2021-04-30 19:33] VITALS: BP 145/70
[2021-04-30 20:10] VITALS: BP 145/70
--- NOTE | 2021-04-30 23:51 | NUR ---
PATIENT SAT UP IN DINING ROOM THIS EVENING AND SPOKE ON PHONE WITH HER SON. SHE HAS BEEN CALM AND COOPERATIVE. SMILING. SHE IS A/0X2 AND FORGETFUL AT TIMES. SHE DENIES PAIN. DENIES SI/HI/AVH. SHE TOOK HER MEDS WHOLE WITH WATER. PATIENT WAS ASSISTED TO BED. BED IS IN LOW POSITOIN AND BED ALARM IS ON. SHE HAD HS SNACK. CONTINUING TO MONITOR.
[2021-05-01 09:26] VITALS: BP 124/45
--- NOTE | 2021-05-01 10:02 | NUR ---
HAS BEEN PLEASANT AND COOPERATIVE THIS AM-SITTING QUIETLY IN GERICHAIR IN DAYROOM ON INITIAL ASSESSMENT THIS AM-ATE BREAKFAST AND TOOK PO MEDS WITHOUT RESISTANCE. DENIES C/O PAIN/DISCOMFORT.AM BP MEDS HELD PER PARAMETERS FOR LOW BP 124/45-USES ROLLER WALKER TO AMBULATE SHORT DISTANCES TO/FROM BATHROOM.
--- NOTE | 2021-05-01 13:23 | NUR ---
KERRI and Dr. Morris participated in a phone call with the Pt's guardian/conservator, Ronny Wilhelm [phone]. An update was given on the Pt. Ronny stated that the Pt has been declining since 2018. Also that Pt is having issues taking her medication. Pt has not taken her medications in 2 months and Pt is paranoid. Medications were discussed and recommendation for 24/7 care a supervision was given. Ronny is in agreement with placing the Pt in LTC. Ronny did inform the Pt did not have the resources to pay for placement and would need Medicaid. KERRI provided education on the Medicaid process and snf placement. KERRI provided Ronny with resources to find nursing homes and encouraged him to start looking at facilities. Ronny had no other questions or concerns at this time. A family meeting was scheduled for 05/03/21 @ 1300. Pt is fully COVID vaccinated. KERRI did send a Medicaid screening request email to Luz Elena with [employer] Kerri will continue to follow
[2021-05-01 19:52] VITALS: BP 155/73
[2021-05-01 20:00] VITALS: BP 155/73
--- NOTE | 2021-05-01 21:14 | NUR ---
PATIENT IN BED WHEN ASSUMED CARES TONIGHT. SHE STATES HER RIGHT KNEE HAS BEEN GIVING HER SOME ACHING PAIN. 4 OUT OF 10. STATES THIS IS CHRONIC. TYLENOL 650MG PO GIVEN WITH HER HS MED. SHE TOOK WHOLE WITH WATER. HER SON/POOJA HOPPER CALLED AND SHE VISITED HIM FOR AWHILE. SHE IS A/0X3 BUT GETS CONFUSED AND FORGETFUL. SHE TOLD HER SON THAT IT JUST NOW DAWNED ON HER THAT SHE WAS IN THE HOSPITAL AND DIDN'T KNOW HOW LONG SHE'S BEEN HERE. ASSISTED PATIENT TO [facility] WHERE SHE VOIDED. SHE IS ONE ASSIST WITH ROLLING WALKER SHORT DISTANCES, OTHERWISE SHE SITS ON A CHAIR ALARM IN A GREY CHAIR. PATIENT IS RESTING AT THIS TIME. BED IN LOW POSITION AND BED ALARM IS ON. ROUTINE ROUNDS TO ASSESS SAFETY AND STATUS OF PATIENT.
[2021-05-02 08:59] VITALS: BP 181/63
[2021-05-02 09:13] VITALS: BP 181/63
--- NOTE | 2021-05-02 09:25 | NUR ---
PATIENT CARE ASSUMED AT 0700 IN BED WHEN ARRIVING ON UNIT. AWOKEN BLOOD PRESSURE HIGH AT 181/61 IN MORNING. GIVEN BLOOD PRESSURE MEDICATIONS ALONG WITH MORNING MEDS. PATIENT UP TO COMMODE - UNSTEADY NEEDS ASSISTANCE AND MONITORING. PATIENT ASSISTED TO DINING AREA. STATED HAD GOOD NIGHT SLEEP. GOOD APPETITE ATE OVER 75 PERCENT OF BREAKFAST. HAS DIFFICULTY D UE TO NO BOTTOME DENTURES. TOOK MEDICATIONS WHOLE WITH NO RESISTANCE. PATIENT VERY CALM - PARTICIPATED IN MORNING GROUP - FOCUSED ON EXERCISE TO MUSIC. WILL CONTINUE TO MONITOR PATIENT FOR SAFETY AND ADDRESS ANY CONCERNS OR NEEDS DAY PROGRESSES. DENIES S/I OR H/I ALERT 1-2 - MAKES NEEDS KNOWN READILY.
[2021-05-02 19:07] VITALS: BP 133/41
[2021-05-02 21:35] VITALS: BP 133/41
--- NOTE | 2021-05-03 01:05 | NUR ---
Jade was alert and oriented x4 this shift. She was able to answer all orientation questions but did appear disorganized/forgetful at times when trying to explain or tell a story. Pt had multiple phone calls this shift from family members and spoke to her sister and kan that live in [place], which she expressed "was very nice". She expressed feeling the best she has felt in a while and feels she has much improved since her admission. Pt presented as calm, cooperative, pleasant, and appropriate this shift. She was able to make her needs known appropriately and alert staff when needing to use the bathroom. She was medication compliant, taking pills whole without difficulty. She denied SI/HI/BARAJAS. Pt denied any physical complaints as she expressed her knees felt "good" raised in the recliner and were raised in bed while sleeping. Will continue to monitor.
[2021-05-03 07:30] VITALS: BP 185/80
--- NOTE | 2021-05-03 12:35 | NUR ---
PATIENT HAS BEEN UP, AND OUT ON THE UNIT, AMBULATE WITH WALKER, GAIT UNSTEADY. PATIENT WENT TO BATHROOM DURING REPORT, WHEN ASSIST OUT OF THE BATHROOM BY THIS NURSE, SHE STATES SHE NEEDS SOMETHING TO "MAKE ME GO, I GO EVERYDAY BUT IS NOT COMING OUT". PATIENT REDIRECTED THAT ITS STILL EARLY IN THE MORNING, SHE MIGHT STILL GO THE DAY PROGRESSES. SHE INSISTED ON GETTING SOMETHING, MILK OF MAGNESIA GIVEN WITH MORNING MEDICATION. PATIENT IS ALERT, AND ORIENTED X 2-3 ABLE TO VOICE NEED. SHE IS FORGETFUL, AND CONFUSED AT TIMES. PATIENT TOOK ALL MEDICATION WHOLE WITHOUT DIFFICULTY, SHE IS EATING MEALS, AND DRINKING FLUID WELL, ABLE TO FEED SELF. PATIENT DENIES SUICIDAL/HOMICIDAL IDEATION, SHE ACKNOWLEDGES DEPRESSION, BUT UNABLE TO RATE IT. PATIENT DENIES ANXIETY, NO SIGN OF ACUTE DISTRESS NOTED. AFFECT IS FLAT, MOOD IS DEPRESSED. WILL CONTINUE TO REDIRECT, AND MONITOR FOR SAFETY.
[2021-05-03 17:36] VITALS: BP 151/58
[2021-05-03 18:44] VITALS: BP 161/67
[2021-05-03 20:40] VITALS: BP 161/67
--- NOTE | 2021-05-03 23:55 | NUR ---
PATIENT HAS BEEN IN ROOM ALL EVENING. SHE AWAKES WHEN THIS NURSE CAME IN. SHE DENIES PAIN. DENIES SI/HI/AVH. SHE TOOK HER HS MEDS WHOLE WITH WATER. SHE IS PLEASANTLY CONFUSED. SHE IS UP WITH ROLLING WALKER AND ASSIST X 1. PATIENT WENT BACK TO SLEEP AFTER TAKING HER MEDS. BED IN LOW POSITION AND BED ALARM IS ON. ROUTINE ROUNDS TO ASSESS SAFETY AND STATUS OF PATIENT. PATIENT'S ROOM MATE HAS BEEN CALLING OUT FOR 3 HOURS TONIGHT SO PATIENT MAY NOT BE WELL RESTED IN THE MORNING. CONTINUING TO MONITOR.
--- NOTE | 2021-05-04 08:18 | NUR ---
RT Progress Note- Jade has been very active in the milieu and recreation therapy groups throughout her first week of admission. She engages in group discussions well with slight confusion. She has not displayed agitation during her interactions with RT. ETHNOLOGY TEACHER will continue to encourage patient participation and progress.
[2021-05-04 10:20] VITALS: BP 184/73
--- NOTE | 2021-05-04 11:43 | NUR ---
Jade was alert and oriented to person, time, and situation this shift, but disoriented to place as she believed she was at a [facility]. She did explain to this RN the logic behind her reasoning of believing she was at a mcc "because there aren't all those cords and stuff you see at a hospital". Pt presents as calm, cooperative, and pleasant. She has been social with staff and peers, understanding of other peers behaviors, and smiling. She denied SI/HI/BARAJAS and remained safe while on the unit. She remains a high fall risk and ambulates with staff with a walker. She has been helped to the bathroom but is able to do most cares herself. She denied any physical complaints this shift and reports her last BM was yesterday. She has spent most of the shift out in the dayroom and participated in groups throughout the day. Will continue to monitor.
[2021-05-04 19:47] VITALS: BP 155/72
--- NOTE | 2021-05-04 22:26 | NUR ---
At onset of cardiac tech pt was sitting in day room awake. This shift pt was alert and oriented x3. Pt was up ad buster in her room using a walker, but was standby when ambulating in hallway or day room. Pt's affect was broad and appropriate with speech. Pt has a phone call with her soon in the evening; phone call appeared calm. Pt was calm, pleasant and cooperative with RN. Compliant with medication and vital sign. Pt stated her mood was positive and she had a good day. Pt denied SI, HI and AVH. Pt is high fall risk. Fall precautions are in place. Will continue to monitor.
[2021-05-05 07:48] VITALS: BP 177/79
[2021-05-05 09:12] VITALS: BP 177/79
--- NOTE | 2021-05-05 13:52 | NUR ---
Jade was alert and oriented to self, place, and time, and loosly oriented to situation. She presented as calm, cooperative, pleasant, and appropriate. She is often noted smiling and laughing when conversing with staff and peers. She participated in groups throughout the day and spent the entire shift in the dayroom. She continues to be a high fall risk and ambulates with a walker with supervision of staff. Staff assists pt whenever she needs to use the bathroom. Pt received a shower this shift and per TON CONTAINER FILLER she was able to do most of the shower herself. Pt voiced some c/o right knee pain and lower back pain, tylenol given this morning with effectiveness; no other physical complaints noted this shift. Pt denies SI/HI/BARAJAS and remained safe while on the unit. She was medication and meal compliant, without difficulty. Will continue to monitor.
--- NOTE | 2021-05-05 15:52 | NUR ---
05/04/2021 YUDY faxed a referral to [facility]. 05/05/2021 YUDY recieved a call from Patience at [facility] of stating they are able to accept the Pt. Patience requested [id number] code, guardianship documents, and PT/OT notes. YUDY was able to fax over the requested information. Discharge was set for 05/08/2021 @ 1100. Patience stated she would set up transportation. YUDY was able to speak with Ronny concerning the matter. Ronny is in agreement with the placement.
[2021-05-05 19:25] VITALS: BP 141/77
--- NOTE | 2021-05-05 23:54 | NUR ---
At onset of night guard pt was sitting awake in bed. This shift pt was alert and oriented x4. Pt was calm, pleasant and cooperative. Pt was up ad buster in her room with a walker. Pt was compliant with vital signs and medications. Affect was broad and pt smiled and joked with RN. Pt complained of some back pain but refused tylenol stating that she didn't want to take any extra medication today. Pt went to bed shortly after recieving HS medications. No SI, HI or AVH. Pt is high fall risk. Fall precautions are in place. Will continue to monitor.
[2021-05-06 09:37] VITALS: BP 148/55
[2021-05-06 09:38] VITALS: BP 148/55
--- NOTE | 2021-05-06 10:05 | NUR ---
RESUMMED CARE FROM OVERNIGHT SHIFT THIS AM, PATIENT SITTING IN DAY ROOM WAITING FOR BREAKFAST. PATIENT ALERT ORIENTED TIMES 4 PATIENT ATE BREAKFAST TOOK MEDICATION WITHOUT INCIDEBNCE. PATIENT DENIES SI/HI/AH/VH AT PRESENT PATIENTS ABDOMEN SOFT BOWEL SOUNDS PRESENT. PATIENT LUNGS CLEAR PATIENT PARTICIPATES IN GROUPS. PATIENT HAS NOT DISPLAYED ANY BEHAVIORS VERY PLEASANT. WILL CONTINUE TO MONITOR PATIENT FOR SAFETY AND BEHAVIORS.
[2021-05-06 20:22] VITALS: BP 130/50
--- NOTE | 2021-05-06 22:44 | NUR ---
At onset of shift pt was sitting in day room in gilson chair. This shift was alert and oriented x3. Pt was able to provide the month and year. Pt talked with this content writer about how she does not remember yelling at nurses and stated that is not her personality. Pt stated she had stopped taking medication and thinks that being off her meds caused her to behave this way. Pt was overall calm, pleasant and cooperative. Pt was compliant with medication and vital signs. Affect was broad and pt smiled when speaking with RN. Pt talked about wanting to be closer to her son and plans on including him more in her care. Pt is high fall risk. Fall precautions in place. Will continue to monitor.
[2021-05-07 10:19] VITALS: BP 166/72
--- NOTE | 2021-05-07 10:54 | NUR ---
RESUMMED CARE FROM OVERNIGHT THIS AM, PATIENT SITTING IN DAY ROOM WAITING FOR BREAKFAST. PATIENT ATE BREAKFAST TOOK MEDICATION WITHOUT INCIDENCE. PATIENT ALERT ORIENTED TIMES 4 DENIES SI/HI/AH/VH AT PRESENT. PATIENT DENIES DEPRESSION AND ANXIETY. PATIENT IS EXCITED THAT SHE WILL BE LEAVING TOMMOROW. PATIENTS ABDOMEN SOFT BOWEL SOUNDS PRESENT PATIENTS LUNGS CLEAR. PATIENT PARTICIPATES IN GROUP HAS NOT DISPLAYED ANY BEHAVIORS. WILL CONTINUE TO MONITOR PATIENT FOR SAFETY AND BEHAVIORS.
--- NOTE | 2021-05-07 18:28 | NUR ---
RT PROGRESS NOTE- PT HAS ATTENDED ALL OF HER GROUPS AND PROVIDED GREAT PARTICIPATION.
[2021-05-07 19:53] VITALS: BP 150/59
--- NOTE | 2021-05-07 23:13 | NUR ---
PATIENT HAS BEEN IN ROOM IN HER BED THIS EVENING. SHE IS A/0X3-4. SHE TOOK HER HS MEDS WHOLE WITH WATER. SHE DENIES PAIN/SI/HI/AVH. SHE AMBULATES WITH ROLLING WALKER AND ASSIST X 1. PATIENT APPEARS TO BE SLEEPING. NO BEHAVIORS. ROUTINE ROUNDS TO ASSESS SAFETY AND STATUS OF PATIENT. CONTINUING TO MONITOR.
--- NOTE | 2021-05-08 06:24 | NUR ---
PATIENT UP TO BSC OFF AND ON THRU NIGHT WITH ASSISTANCE. PATIENT IS A/0X4 AND IS STAND BY ASSIST. SHE IS STEADIER ON FEET AND MOSTLY INDEPENDENT WITH CARES. COVID 19 PCR SWAB COLLECTED AND TURNED IN THIS MORNING. AWAITING RESULTS. PATIENT DENIES PAIN. PATIENT SLEEPING AT THIS TIME. BED IN LOW POSITION AND BED ALARM IS ON. ROUTINE ROUNDS TO ASSESS SAFETY AND STATUS OF PATIENT. CONTINUING TO MONITOR.
[2021-05-08 09:34] VITALS: BP 160/64
--- NOTE | 2021-05-08 10:26 | NUR ---
ORIENTED TO NAME ONLY THIS AM. ATE BREAKFAST-100 PERCENT WITHOUT ASSISTANCE. DENIES PAIN/DISCOMFORT. DENIES SI/SH/HI. REQUIRES SBA X1 AND RW TO USE RESTROOM-GAIT CONTINUES UNSTEADY AT TIMES DESPITE USE OF ROLLER WALKER.
--- NOTE | 2021-05-08 16:10 | NUR ---
YUDY recieved an VM from Patience Christian from [facility]. Patience informed that admission had to be delayed due to the Pt's Guardian not completing paper work. Patience stated the admissions documents would have to be recieved from the Guardian before they could set up transportation. Patience stated she had spoken with Guardian concerning the matter. YUDY will continue to follow Discharge will likely be 05/09/2021
[2021-05-08 20:12] VITALS: BP 148/70
[2021-05-08 22:06] VITALS: BP 148/70
--- NOTE | 2021-05-08 23:17 | NUR ---
PATIENT WAS UP IN DINING ROOM WHEN ASSUMED CARE OF PATIENT AT 190O. SHE WENT BACK TO HER ROOM SHORTLY AFTER AND TOILETED HERSELF. SHE IS STAND BY ASSIST. SHE USES ROLLING WALKER AND HAS SLOW STEADY GAIT. SHE IS A/0X3-4 BUT CONFUSED AT TIMES. THIS EVENING SHE IS UP TO [facility] FOR TOILETING. SHE WENT TO BED WITH C/0 COLD FEET. SOCKS WERE IN PLACE. WARMED BLANKET PLACED ON FEET WITH RELIEF. PATIENT TOOK MEDS WHOLE WITH WATER. SHE DENIES PAIN. SHE IS PLEASANT AND COOPERATIVE. DENIES SI/HI/AVH. BED IN LOW POSITION AND BED ALARM IS ON. ROUTINE ROUNDS TO ASSESS SAFETY AND STATUS OF PATIENT. PATIENT RESTING WITH EYES CLOSED AT THIS TIME. APPEARS COMFORTABLE.
[2021-05-09 09:08] VITALS: BP 184/65
--- NOTE | 2021-05-09 10:13 | NUR ---
0646 YUDY recieved and email from Patience at [facility] informing the Pt not fully vaccinated. Patience stated she needed approval from her clinical team to accept [phone] YUDY recieved and email stating the Pt was approved for admission and tranpsortation scheduled for 1300. YUDY did inform the team of this discharge
[2021-05-09] MEDS ORDERED: NORVASC10 MG PO ×2 (10:43)
[2021-05-09] MEDS ORDERED: LISINOPRIL20 MG PO ×2 (10:44)
[2021-05-09] MEDS ORDERED: OLANZAPINE2.5 MG PO ×2 (10:44)
[2021-05-09] MEDS ORDERED: COLACE 100 MG100 MG PO ×2 (10:45)
--- NOTE | 2021-05-09 13:34 | NUR ---
REPORT CALLED TO STAFF NURSE MARSHA KELSEY [facility].PERSONEL BELONGINGS SECURED AND ASSISTED TO DRESS/USE BATHROOM. DENIES C/O PAIN/DISCOMFORT. PT HAS BEEN WAITING IN DAYROOM FOR TRANSPORTATION SINCE 1300. DENIES SI/SH
== END 2021-05-09 14:30 | DRG 56 ==
LOC: SBH 12:01
PROVIDERS: Hospitalist; ADMIT Psychiatry & Neurology Psychiatry; ATTEND Psychiatry & Neurology Psychiatry
DX: G30.9 Alzheimer's disease, unspecified (principal); E43 Unspecified severe protein-calorie malnutrition; F01.51 Vascular dementia, unspecified severity, with behavioral disturbance; F02.81 Dementia in other diseases classified elsewhere, unspecified severity, with behavioral disturbance; R00.1 Bradycardia, unspecified; Z20.822 Contact with and (suspected) exposure to COVID-19; I10 Essential (primary) hypertension; Z90.710 Acquired absence of both cervix and uterus; Z90.722 Acquired absence of ovaries, bilateral; Z88.0 Allergy status to penicillin; Z91.040 Latex allergy status; Z68.24 Body mass index [BMI] 24.0-24.9, adult; Z79.899 Other long term (current) drug therapy
CPT/HCPCS: 10880